=== PATIENT | male | born 2000 | race Two or more races ===

== ENCOUNTER 2019-02-11 13:54 | Emergency (ER) | payer OTHER ==
[~2019-02-11] VITALS: Ht 177.8 cm; Wt 69.0 kg
[2019-02-11] MEDS ORDERED: ONDANSETRON 2MG/ML, 2ML IVPush ONE (14:00)
[2019-02-11] MEDS ORDERED: SODIUM CHLORIDE FLUSH 10ML SYR IVF ONE (14:00)
[2019-02-11] MEDS ORDERED: SODIUM CHLORIDE 0.9% 1,000ML IVBOLUS ONE (14:00)
--- NOTE | 2019-02-11 14:06 | NUR ---
PT UPRIGHT ON GURNEY AWAKE & MORE COMFORTABLE, NAD, RESPONDS APPROP TO STAFF, COMFORT MEASURES PROVIDED, CALL LIGHT WITHIN REACH.
[2019-02-11] MEDS ORDERED: ONDANSETRON 2MG/ML, 2ML ONE (14:10)
--- NOTE | 2019-02-11 14:10 | NUR ---
ZOFRAN ORDERED PER DR REIS; WILL NOTIFY ERP OF ZOFRAN RECEIVED DURING TRANSPORT.
--- NOTE | 2019-02-11 14:17 | NUR ---
NS BOLUS HUNG; IV SITE PATENT.
--- NOTE | 2019-02-11 15:01 | NUR ---
PT REMAINS UPRIGHT ON GURNEY AWAKE & MORE COMFORTABLE, NAD, RESPONDS APPROP TO STAFF, COMFORT MEASURES PROVIDED, CALL LIGHT WITHIN REACH.
--- NOTE | 2019-02-11 15:02 | NUR ---
PT GIVEN PO FLUIDS
[2019-02-11 15:49] VITALS: BP 96/69
--- NOTE | 2019-02-11 15:50 | NUR ---
Patient/Caregiver given discharge instructions and they have confirmed that they understand the instructions. Patient ambulatory with steady gait.
== END 2019-02-11 16:01 | disposition home or self-care (01) ==
LOC: ED 15:45
DX: A08.39 Other viral enteritis (principal); R11.2 Nausea with vomiting, unspecified; R19.7 Diarrhea, unspecified
CPT/HCPCS: 96360; 96361; 99283; J7030